=== PATIENT | male | born 1990 | race Hispanic/Latino ===

== ENCOUNTER → 2021-05-25 | Day surgery (SDC) | payer BC ==
[~2021-05-25] MED LIST: DDAVP0.1 MG PO; HYDROCORTISONE10 MG PO; LEVOTHYROXINE50 MCG PO; OR PHACO EYE KIT ONE; PREOP PHACO EYE KIT ONE; TESTOSTERONE5 GM TD
[2021-05-25 11:10] VITALS: BP 109/68
== END | disposition home or self-care (01) ==
LOC: OR 07:58
PROVIDERS: ATTEND Ophthalmology
DX: H25.12 Age-related nuclear cataract, left eye (principal); E03.9 Hypothyroidism, unspecified; Z88.1 Allergy status to other antibiotic agents; Z01.812 Encounter for preprocedural laboratory examination; Z20.822 Contact with and (suspected) exposure to COVID-19; Z85.858 Personal history of malignant neoplasm of other endocrine glands
CPT/HCPCS: 66850; U0002

== ENCOUNTER → 2021-06-08 | Day surgery (SDC) | payer BC ==
[2021-06-08 12:55] VITALS: BP 116/88
== END | disposition home or self-care (01) ==
LOC: OR 10:14
PROVIDERS: ATTEND Ophthalmology
DX: H25.041 Posterior subcapsular polar age-related cataract, right eye (principal); E03.9 Hypothyroidism, unspecified; E66.9 Obesity, unspecified; Z88.1 Allergy status to other antibiotic agents; Z01.812 Encounter for preprocedural laboratory examination; Z20.822 Contact with and (suspected) exposure to COVID-19; Z79.899 Other long term (current) drug therapy; Z68.35 Body mass index [BMI] 35.0-35.9, adult; Z86.018 Personal history of other benign neoplasm; Z92.21 Personal history of antineoplastic chemotherapy; Z92.3 Personal history of irradiation
CPT/HCPCS: 66984; U0002